=== PATIENT | male | born 1950 | race Caucasian/White ===

== ENCOUNTER → 2017-12-02 | Outpatient (CLI) | payer MEDICARE, BC | LOC: LAB SHORT 07:34 → LAB 07:34 | DX: D48.5 Neoplasm of uncertain behavior of skin (principal) | CPT/HCPCS: 88305 ==

== ENCOUNTER 2019-08-05 10:39 | Day surgery (SDC) | payer MEDICARE, BC ==
[~2019-08-05] VITALS: Ht 172.7 cm; Wt 80.9 kg
[~2019-08-05 10:39] MED LIST: ALLO300 PO; Depo-Testos200 MG/ML IM; FISH OIL PO; FLAX PO; Hair, Skin & N1 EACH PO
--- NOTE | 2019-08-05 11:30 | NUR ---
Ambulatory in Day Surgery. History, Chart, Medications and Allergies reviewed before start of procedure.Lungs clear T/O to Auscultation. Patient confirms NPO status and agrees with scheduled surgery.
--- NOTE | 2019-08-05 15:30 | NUR ---
INTO STEP VIA ALLY. AQUACEL DRESSING TO RIGHT ARM C/D/I. SLING AND ICE PLACED.RIGHT ARM ELEVATED ON PILLOW. PT REPORTS 6/10 RIGHT ARM PAIN. DENIES NAUSEA. FRANCOIS INITIATED.
--- NOTE | 2019-08-05 15:40 | NUR ---
MED WITH PERCOCET 2 PO FOR PAIN-SEE EMAR. PT AMBULATED TO BRP WITHOUT DIFFICULTY. HE WAS ABLE TO VOID X 1.
--- NOTE | 2019-08-05 16:55 | NUR ---
Patient up to Ambulate independently. Gait steady. Dressing to procedure site clean, dry, intact with no visible drainage, swelling, erythema or bruising noted. Discharge instructions reviewed with patient. Patient verbalizes understanding. Copy given to patient to take home. Discharged via wheelchair to private car for ride home.
== END 2019-08-05 17:05 | disposition home or self-care (01) ==
LOC: ORSCMMR 10:39 → ORD 12:00 → ORSCMMR 12:00
PROVIDERS: Orthopaedic Surgery
PROC: 0LM30ZZ Reattachment of Right Upper Arm Tendon, Open Approach (ICD-10-PCS; principal; 2019-08-05 12:00)
DX: M66.821 Spontaneous rupture of other tendons, right upper arm (principal); E78.5 Hyperlipidemia, unspecified; Z86.73 Personal history of transient ischemic attack (TIA), and cerebral infarction without residual deficits; Z79.899 Other long term (current) drug therapy
CPT/HCPCS: 82947; C1713; J0690; J1100; J1885; J2250; J2405; J2704; J2710; J3010; J7120

== ENCOUNTER 2019-09-12 05:58 | Day surgery (SDC) | payer MEDICARE, BC ==
[~2019-09-12] VITALS: Ht 172.7 cm; Wt 80.5 kg
[~2019-09-12 05:58] MED LIST changes: +NAPR500 PO; +PROSTATE HEALTH PO; +TADA10TA PO
[2019-09-12] MEDS ORDERED: SILD50TA PO (06:25)
--- NOTE | 2019-09-12 07:05 | NUR ---
Ambulatory in Day Surgery History, Chart, Medications and Allergies reviewed before start of procedure. Patient confirms NPO status and agrees with scheduled surgery. Lungs clear T/O to Auscultation. Patient States Post-Procedure ride home has been arranged.
--- NOTE | 2019-09-12 09:26 | NUR ---
DENIES NAUSEA AND PAIN. TOLERATING WATER AND JELLO. 2X2 GAUZE DRESSING WITH OCCLUSIVE CLEAR DRESSING INTACT TO UMBILICUS. NO VISIBLE DRAINAGE, SWELLING, ERYTHEMA OR BRUISING NOTED. PATIENT STATES HIS PRESCRIPTION WAS ALREADY FILLED.
--- NOTE | 2019-09-12 09:40 | NUR ---
Discharge instructions reviewed with patient. Patient verbalizes understanding. Copy given to patient to take home. Patient States Post-Procedure ride home has been arranged with a friend, Gladys.
--- NOTE | 2019-09-12 10:12 | NUR ---
1000- UP TO BR TO VOID. GAIT STEADY. REPORTS HAVING A SORE THROAT. ENCOURAGED TO DRINK COOL FLUID. ALSO STATES HIS FEET FELT LIKE THEY WERE TINGLING. NO SENSATION LOSS NOTED AND FEET WARM TO TOUCH. 1005- DR SANTANA AT BEDSIDE ANSWERING PATIENT QUESTIONS ABOUT ACTIVITY RESTRICTIONS. 1010- DISCHARGE TO PERSONAL VEHICLE AND FRIEND, CHELO. TRANSPORTED FROM [facility] VIA W/C.
== END 2019-09-12 22:38 | disposition home or self-care (01) ==
LOC: ORSCMMR 05:58 → ORD 07:30 → ORSCMMR 07:30
PROVIDERS: Surgery
PROC: 0WQF0ZZ Repair Abdominal Wall, Open Approach (ICD-10-PCS; principal; 2019-09-12 07:30)
DX: K42.9 Umbilical hernia without obstruction or gangrene (principal); E78.5 Hyperlipidemia, unspecified; Z79.899 Other long term (current) drug therapy
CPT/HCPCS: 87081; A9270-GY; J0171; J0690; J1100; J1885; J2250; J2405; J2704; J2710; J3010; J7120

== ENCOUNTER → 2019-10-21 | Outpatient (CLI) | payer MEDICARE, BC ==
[~2019-10-21] MED LIST changes: +SILD50TA PO
[2019-10-23 10:06] LABS: HBSAG SCREEN Negative (Negative); HEP A AB, IGM Negative (Negative); HEP B CORE AB, TOT Negative (Negative); HEP C VIRUS AB <0.1 (0.0-0.9); HIV SCREEN 4TH GENERATION WRFX Non Reactive (Non Reactive)
[2019-10-25 02:06] LABS: CHLAMYDIA TRACHOMATIS, NAA Negative (Negative); NEISSERIA GONORRHOEAE, NAA Negative (Negative)
== END ==
LOC: LAB SHORT 15:38 → LAB 15:38
PROVIDERS: Nurse Practitioner
DX: N34.1 Nonspecific urethritis (principal); R79.9 Abnormal finding of blood chemistry, unspecified
CPT/HCPCS: 86592; 86704; 86708; 86803; 87086; 87340; 87389; 87491; 87591

== ENCOUNTER → 2020-06-11 | Outpatient (CLI) | payer MEDICARE, BC ==
[2020-06-13 00:10] LABS: CHLAMYDIA TRACHOMATIS, NAA Negative (Negative); NEISSERIA GONORRHOEAE, NAA Negative (Negative)
== END | disposition home or self-care (01) ==
LOC: LAB 19:34 → LAB SHORT 19:34
PROVIDERS: Family Medicine
DX: R30.0 Dysuria (principal)
CPT/HCPCS: 87491; 87591

== ENCOUNTER → 2020-07-17 | Outpatient (CLI) | payer MEDICARE, BC | END | disposition home or self-care (01) | LOC: LAB 10:33 → LAB SHORT 10:33 | DX: D22.71 Melanocytic nevi of right lower limb, including hip (principal); D48.5 Neoplasm of uncertain behavior of skin | CPT/HCPCS: 88305 ==

== ENCOUNTER → 2020-12-24 | Outpatient (CLI) | payer MEDICARE, BC ==
[2020-12-26 07:10] LABS: CHLAMYDIA TRACHOMATIS, NAA Negative (Negative)
== END | disposition home or self-care (01) ==
LOC: LAB SHORT 15:00 → LAB 15:00
PROVIDERS: Family Medicine
DX: M54.5 Low back pain (principal); R30.0 Dysuria; R39.15 Urgency of urination; Z11.59 Encounter for screening for other viral diseases
CPT/HCPCS: 87491; 87591

== ENCOUNTER → 2021-01-14 | Outpatient (CLI) | payer MEDICARE, BC | LOC: LAB SHORT 14:02 → LAB 14:02 | DX: D48.5 Neoplasm of uncertain behavior of skin (principal) | CPT/HCPCS: 88305 ==

== ENCOUNTER → 2024-02-15 | Outpatient (CLI) | payer MEDICARE, BC ==
[2024-02-15 17:41] LABS: BASOPHILS ABSOLUTE AUTO 0.05 K/mm3 (0.00-0.23); BASOPHILS PERCENT AUTO 1 % (0-2); EOSINOPHILS ABSOLUTE AUTO 0.15 K/mm3 (0.00-0.68); EOSINOPHILS PERCENT AUTO 2 % (0-6); Hematocrit 53.3 % (37.0-53.0); Hemoglobin 18.3 g/dL (13.5-17.5); IMMATURE GRAN ABSOLUTE AUTO 0.05 K/mm3 (0.00-0.10); IMMATURE GRAN PERCENT AUTO 1 % (0-1); LYMPHOCYTES ABSOLUTE AUTO 1.09 K/mm3 (0.84-5.20); LYMPHOCYTES PERCENT AUTO 15 % (21-46); MONOCYTES ABSOLUTE AUTO 0.54 K/mm3 (0.16-1.47); MONOCYTES PERCENT AUTO 8 % (4-13); Mean Corpuscular HGB 30.8 pg (26.0-34.0); Mean Corpuscular HGB Conc 34.3 g/dL (31.5-36.5); Mean Corpuscular Volume 90 fL (80-100); Mean Platelet Volume 12.5 fL (9.1-12.4); NEUTROPHILS ABSOLUTE AUTO 5.35 K/mm3 (1.96-9.15); NEUTROPHILS PERCENT AUTO 74 % (41-73); Platelet Count 128 K/mm3 (150-400); RDW Coefficient Variation 14.6 % (11.7-14.2); RDW Standard Deviation 46.3 fL (35.1-46.3); Red Blood Cell Count 5.95 M/mm3 (4.30-5.90); White Blood Cell Count 7.23 K/mm3 (4.00-11.30)
[2024-02-15 18:49] LABS: Albumin/Globulin Ratio 1.2 (0.8-1.8); Bilirubin, Total 0.8 mg/dL (0.1-1.0); Bun/Creatinine Ratio 15.5 (12.0-20.0); Calcium, Blood 9.5 mg/dL (8.5-10.1); Creatinine, Blood 1.03 mg/dL (0.60-1.20); Globulin, Blood 3.3 g/dL (2.2-4.0); PSA, %Free 30.1 %; PSA, Free 0.896 ng/mL; Potassium, Blood 4.4 mmol/L (3.5-5.5); Total Protein, Blood 7.3 g/dL (6.4-8.2)
[2024-02-15 18:51] LABS: Cholesterol 285 mg/dL (50-200); Thyroid Stimulating Hormone 3.901 uIU/mL (0.360-4.800)
[2024-02-15 18:55] LABS: CHOL/HDL RATIO Unable to Calculate; LDL/HDL RATIO Unable to Calculate; Low Density Lipoprotein Chol Unable to Calculate mg/dL (<110); Triglycerides >1000 mg/dL (30-160); Very Low Density Lipoprot Chol Unable to Calculate mg/dL (6-32)
== END ==
LOC: LAB SHORT 17:32 → LAB 17:32
PROVIDERS: Physician Assistant
DX: N42.81 Prostatodynia syndrome (principal); N41.9 Inflammatory disease of prostate, unspecified; E78.5 Hyperlipidemia, unspecified
CPT/HCPCS: 80053; 80061; 83690; 84153; 84154; 84443; 85025